=== PATIENT | female | born 1945 | race Caucasian/White ===

== ENCOUNTER 2020-05-21 05:35 | Emergency (ER) | payer MEDICARE ==
[2020-05-21 06:08] LABS: Bilirubin Negative (Negative); Blood, Urine Small (Negative); Glucose, Urine (Dipstick) Negative (Negative); Ketone, Urine Negative (Negative); Leukocyte Moderate (Negative); Nitrite Positive (Negative); Protein, Urine (Dipstick) Negative (Neg-Trace); Specific Gravity, Urine 1.015 (1.005-1.030); Urobilinogen 0.2 mg/dL (Less than 2)
[2020-05-21 06:09] LABS: Bacteria/HPF 2+ HPF (None Seen); Clarity Slightly Cloudy (Clear); RBC/HPF 0-3 HPF (0-3); Squamous Epithelial 0-3 HPF (0-3); WBC/HPF 21-50 HPF (0-3)
[2020-05-21 06:37] LABS: Hemoglobin 13.7 g/dL (12.0-16.0); Mean Corpuscular HGB CONC 32.7 g/dL (32.0-36.0); Mean Corpuscular Hemoglobin 30.1 pg (27.0-31.0); Mean Platelet Volume 6.6 fL (7.4-10.4); Platelet Count 253 thou/uL (130-400); RBC Distribution Width 11.3 % (11.5-14.5); Red Blood Cell (RBC) Count 4.55 mill/uL (4.20-5.40); White Blood Cell (WBC) Count 13.6 thou/uL (4.8-10.8)
[2020-05-21 06:47] LABS: ALT (SGPT) 56 U/L (8-55); AST (SGOT) 84 U/L (5-34); Albumin 4.2 g/dL (3.4-4.8); Alkaline Phosphatase 79 U/L (40-110); Anion Gap 17 mmol/L (10-20); BUN (Urea Nitrogen) 14 mg/dL (9.8-20.1); Bilirubin, Total 0.6 mg/dL (0.2-1.2); Calc. Creatinine Clearance 0 mL/min (70-130); Calcium 9.2 mg/dL (7.8-10.44); Carbon Dioxide 21 mmol/L (23-31); Chloride 103 mmol/L (98-107); Globulin 2.6 g/dL (2.4-3.5); Glucose 155 mg/dL (83-110); Protein, Total 6.8 g/dL (5.8-8.1); Sodium 137 mmol/L (136-145)
[2020-05-21] MEDS ORDERED: Tamsulosin HCl 0.4 MG CAP ONE (06:48)
[2020-05-21] MEDS ORDERED: Ciprofloxacin 500 MG TAB ONE (06:48)
[2020-05-21] MEDS ORDERED: Ketorolac Tromethamine 30 MG/ML VIAL ONE (06:55)
[2020-05-21 06:57] LABS: MDiff Complete? YES; Manual Diff?? YES
[2020-05-21 07:03] LABS: Band 11 % (5-11); Lymphocytes 8 % (21-51); Monocytes 3 % (0-10); Neutrophil 78 % (42-75)
[2020-05-21 07:04] LABS: Anisocytosis SLIGHT = 6-15 cells (100X) (0-5/hpf); Platelet Morphology Comment Appears Adequate
--- NOTE | 2020-05-21 07:48 | CT ---
PRELIMINARY REPORT/[facility]/EMERGENCY AFTER HOURS PROCEDURE: EXAM: CT Abdomen and Pelvis Without Intravenous Contrast CLINICAL HISTORY: RIGHT FLANK PAIN TECHNIQUE: Axial computed tomography images of the abdomen and pelvis without intravenous contrast. CONTRAST: None. COMPARISON: None provided. FINDINGS: LUNG BASES: No basilar airspace consolidation or pleural effusion. LIVER: Unremarkable. GALLBLADDER AND BILE DUCTS: Small gallstones without evidence of cholecystitis.. No ductal dilation. PANCREAS: Unremarkable. SPLEEN: Unremarkable. ADRENAL GLANDS: Unremarkable. KIDNEYS, URETERS, AND BLADDER: Moderate hydronephrosis on the right. Mid ureteral stone measuring ab out 5 mm. No intrarenal stones are seen. STOMACH AND BOWEL: Evaluation of the GI tract is limited due to lack of contrast and limited distenti on of the GI tract. No obvious, acute GI abnormalities are identified. Diverticulosis without evidence of diverticulitis. Some solid fecal material noted in the ileum without significant distent ion. APPENDIX: Normal appendix not clearly identified but no specific CT indications of acute appendicitis . PERITONEUM: No free fluid. No free air. LYMPH NODES: No lymphadenopathy. VASCULATURE: No aortic aneurysm. ABDOMINAL WALL AND SOFT TISSUES: Unremarkable. BONES: No fracture or suspicious osseous abnormality. IMPRESSION: Mid ureteral stone on the right with hydronephrosis. Gallstones. ELECTRONICALLY SIGNED BY: Junior Caldera MD May 21, 2020 6:49:47 AM [employer] [facility] FINAL REPORT CT ABDOMEN AND PELVIS WITHOUT CONTRAST: DATE: 05/21/2020. COMPARISON: None HISTORY: Right-sided flank pain FINDINGS: The lack of contrast limits assessment of the viscera, bowel, vascular structures, and for lymphadeno jennifer. The imaged lung bases are unremarkable. Incompletely assessed coronary arterial calcification is pres ent. There is no free intraperitoneal air or fluid. Calcified gallstones are seen within the gallbladder l umen. There are a few tiny hepatic hypodensities, too small to characterize on noncontrast enhanced imaging . Spleen, pancreas, and adrenal glands are unremarkable. The left kidney demonstrates no evidence for nephrolithiasis or hydronephrosis. No hydroureter or judah dence of obstructive uropathy is seen on the left. There is mild hydronephrosis on the right with right-sided perinephric stranding. The proximal right ureter is dilated. These findings are secondary to a stone within the mid right ureter at the axial level of the L4 vertebral body measuring approximately 5 mm in transverse dimension. No additional st one is seen within the right ureter. Limited assessment of the bowel without contrast media demonstrates diverticulosis of the descending colon and sigmoid colon with no evidence for diverticulitis. There is a small fat-containing umbilical hernia. No evidence for bowel inflammatory change or bowel obstruction. Review of the osseous structures demonstrates multilevel lower lumbar spine degenerative change. No w orrisome lytic or blastic bone lesion. IMPRESSION: 1. Obstructive uropathy on the right secondary to a mid ureteral obstructing stone measuring approxim ately 5 mm. 2. Cholelithiasis. Transcribed Date/Time: 05/21/2020 7:58 AM
== END 2020-05-21 07:15 | disposition home or self-care (01) ==
LOC: MADERS 05:35
DX: N13.2 Hydronephrosis with renal and ureteral calculous obstruction (principal); N39.0 Urinary tract infection, site not specified
CPT/HCPCS: 74176; 80053; 81003; 81015; 85025; 96374; J1885

== ENCOUNTER 2020-07-01 18:16 | Outpatient (CLI) | payer MEDICARE | END 2020-07-01 18:17 | disposition home or self-care (01) | LOC: MADCT 18:16 | PROVIDERS: ATTEND Urology | DX: N20.0 Calculus of kidney (principal); R10.9 Unspecified abdominal pain; P35.0 Congenital rubella syndrome; K80.20 Calculus of gallbladder without cholecystitis without obstruction; K57.90 Diverticulosis of intestine, part unspecified, without perforation or abscess without bleeding | CPT/HCPCS: 74176 ==

== ENCOUNTER 2020-07-26 11:20 | Emergency (ER) | payer MEDICARE | END 2020-07-26 12:37 | disposition home or self-care (01) | LOC: MADERS 11:20 | DX: S93.601A Unspecified sprain of right foot, initial encounter (principal); Z79.899 Other long term (current) drug therapy; W19.XXXA Unspecified fall, initial encounter ==